=== PATIENT | female | born 1975 | race Caucasian/White ===

== ENCOUNTER 2022-04-14 10:47 | Day surgery (SDC) | payer MEDICARE, OTHER, SELFPAY ==
[2022-04-11 11:40] VITALS: BMI 21.7
[2022-04-14 11:14] LABS: UPreg QC Valid YES; Urine Pregnancy NEGATIVE (NEGATIVE)
[2022-04-14 11:30] VITALS: BP 142/98; PULSE 78; RESP 16; TEMP 36.7; O2SAT 97
[2022-04-14 11:31] LABS: Amphetamine Screen Urine POSITIVE (Not Detect); Barbiturates, Urine Not Detected (Not Detect); Benzodiazepines Screen Urine POSITIVE (Not Detect); Cannabinoid Screen Urine Not Detected (Not Detect); Cocaine Screen Urine Not Detected (Not Detect); Fentanyl, urine Not Detected (Not Detect); Opiate Screen Urine Not Detected (Not Detect); Phencyclidine Screen Urine Not Detected (Not Detect)
--- NOTE | 2022-04-14 12:15 | P.CONAN_ITS ---
HPI - Anesthesia Eval Consult details Narrative: 46 F for EGD [facility] Past Medical History Medical History (Updated 04/13/22 @ 07:54 by Amanda Gandhi, RN) Hx of substance abuse HTN (hypertension) GERD (gastroesophageal reflux disease) Dasilva esophagus Anxiety Depression Family History Family history of problems with anesthesia: No Surgical History Surgical History (Updated 04/13/22 @ 07:55 by Amanda Gandhi RN) Hx of esophagogastroduodenoscopy History of Problems with Anesthesia: No Social History Patient Tobacco Use Status: Current everyday Tobacco user Tobacco use type: Cigarette Cigarettes Per Day: 2 Meds Allergies Allergy/AdvReac Type Severity Reaction Status Date / Time penicillin G [Penicillin G] Allergy Intermediate HIVES Unverified 04/08/20 16:28 Active Medications: Current Medications Lactated Ringer's (Lr) 1,000 mls @ 100 mls/hr IVCONT .Q10H REPLACED BY [facility] Home Medications Medication Instructions Recorded Confirmed Last Taken Type clonazepam 0.5 mg tablet (Klonopin) 0.5 mg PO DAILY PRN Anxiety 04/13/22 04/13/22 Unknown History hydrochlorothiazide 25 mg tablet 25 mg PO DAILY 04/13/22 04/13/22 Unknown History metoprolol tartrate 04/13/22 04/13/22 Unknown History naltrexone microspheres 380 mg 380 mg IM Q4W 04/13/22 04/13/22 Unknown History intramuscular suspension,extended release (Vivitrol) pantoprazole 40 mg tablet,delayed 40 mg PO DAILY 04/13/22 04/13/22 Unknown History release cetirizine 10 mg tablet 1 tab PO DAILY 04/14/22 04/14/22 Unknown History dextroamphetamine-amphetamine ER PO 04/14/22 Unknown History 30 mg 24hr capsule,extend release (Adderall XR) Exam Exam Date and Time: April 14, 2022 1215 Height,Weight and Vital Signs: Height 5 ft 7 in Weight 63.049 kg Last Vital Signs Temp 98.1 F 04/14/22 11:30 Pulse 78 04/14/22 11:30 Resp 16 04/14/22 11:30 BP 142/98 H 04/14/22 11:30 Pulse Ox 97 04/14/22 11:30 O2 Del Method 04/14/22 11:30 Pertinent Lab Results Pertinent Lab Results: Laboratory Tests 04/14/22 04/14/22 10:59 10:59 Urine Test NEGATIVE Urine Opiates Screen Not Detected Urine Fentanyl Screen Not Detected Ur Barbiturates Screen Not Detected Ur Phencyclidine Scrn Not Detected Ur Amphetamines Screen POSITIVE H U Benzodiazepines Scrn POSITIVE H Urine Cocaine Screen Not Detected U Marijuana (THC) Screen Not Detected Airway Mallampati Class: III TM Dist: >3cm Neck ROM: Full Loose/Missing/Broken Teeth: Yes Assessment and Plan Assessment Anesthesia Assessment: Anesthesia Plan Discussed and Chart Reviewed Final Anesthetic Review Family History of Problems with Anesthesia: No History of Problems with Anesthesia: No NPO: Yes ASA Class: III Final Preanesthetic Review: Meds/Allgs Chart Reviewed, Consent Obtained/Reviewed and Anes Risks/Benef Reviewed Patient Risk: Intermediate Procedure Risk: Intermediate Anesthetic Plan Anesthetic Plan: MAC: and Agree w/ Assess. and Plan Disposition: Standard PACU
--- NOTE | 2022-04-14 12:20 | MHC.SHP ---
Pre-Procedural Eval Section A Date of Service: 04/14/22 The patient is an INPATIENT: No Changes since office visit: No Cold of Flu in the past 2 weeks, No New Medical Problems, No Changes in Medication and No Patient answered all questions The History & Physical has been completed within 30 days and I have reviewed it.: Yes Section B Chief Complaint: esophageal obstruction Allergies: Allergies Allergy/AdvReac Type Severity Reaction Status Date / Time penicillin G [Penicillin G] Allergy Intermediate HIVES Unverified 04/08/20 16:28 Plan I have reviewed the history and physical and performed a pertinent physical examination on my patient. No changes have occurred unless specified.
--- NOTE | 2022-04-14 13:09 | PM.OP ---
Brief Operative Note Date of Service: 04/14/22 Pre-op diagnosis: barrets,dysphagia, esophageal stricture Post-op diagnosis: same Procedure: egd Surgeon: Tarun Doyle Anesthesia: MAC Was an Correctional Therapy Director used for this Procedure?: No Estimated blood loss (mL): 5 Pathology: other Condition: stable Disposition: PACU
[2022-04-14 13:15] VITALS: BP 148/101; PULSE 75; RESP 16; TEMP 36.7; O2SAT 98
[2022-04-14 13:20] VITALS: BP 145/99; PULSE 78; RESP 17; O2SAT 100
[2022-04-14 13:25] VITALS: BP 154/108; PULSE 78; RESP 18; O2SAT 99
[2022-04-14 13:30] VITALS: BP 139/92; PULSE 78; RESP 18; O2SAT 99
[2022-04-14 13:45] VITALS: BP 143/95; PULSE 76; RESP 16; TEMP 36.7; O2SAT 99
--- NOTE | 2022-04-15 04:36 | OP_ITS ---
SURGEON: Tarun Doyle MD INDICATIONS: Dysphagia, history of esophageal stricture, and Dasilva esophagus. PREOPERATIVE DIAGNOSIS: POSTOPERATIVE DIAGNOSIS: PROCEDURE PERFORMED: Upper endoscopy with biopsy and balloon dilation. ESTIMATED BLOOD LOSS: COMPLICATIONS: ANESTHESIA: General. ASSISTANTS: SPECIMENS: DESCRIPTION OF PROCEDURE: Date: 04/14/22 History and physical performed. The risks and benefits of the procedure were explained to the patient. Informed consent was obtained. The patient was placed in the left lateral decubitus position. The Olympus video gastroscope was introduced into the esophagus, stomach, and duodenum. Examination was performed. The scope was removed. She tolerated the procedure well and was returned to the recovery area in stable condition. FINDINGS: There was nodularity and edema along the visualized larynx. No definite mass was seen. Esophagus: There was Dasilva esophagus extending from the EG junction up to about 28 cm. Biopsies were obtained in all 4 quadrants every 2 cm. There were no raised lesions or ulcerated areas. No definite stricture was identified. Balloon dilation of the EG junction to 20 mm was performed with a through the scope balloon for 60 seconds because of the patient's complaints. Stomach: The stomach showed no evidence of masses, ulcers, or polyps. Duodenum: The bulb and second portion were normal. IMPRESSION: 1. Dasilva esophagus. 2. Dysphagia. 3. Nodularity of larynx RECOMMENDATION: Follow up the biopsy results. ENT referral for laryngoscopy. MD ZACHARY Fuentes/LISS / [id number] MTDD
== END 2022-04-14 14:00 | disposition home or self-care (01) ==
PROVIDERS: Nurse Practitioner; PCP Nurse Practitioner Family; Visit Provider Internal Medicine Gastroenterology
PROC: (CPT 43249; principal; 2022-04-14 11:40)
DX: R13.10 Dysphagia, unspecified (principal); K22.70 Barrett's esophagus without dysplasia; J38.7 Other diseases of larynx; K21.9 Gastro-esophageal reflux disease without esophagitis; I10 Essential (primary) hypertension; F32.A Depression, unspecified; Z79.899 Other long term (current) drug therapy; Z88.0 Allergy status to penicillin; F17.210 Nicotine dependence, cigarettes, uncomplicated
CPT/HCPCS: 43249; 43239; 80307; 81025; 88305; C1726; J0330; J1100; J2250; J2405; J3010

== ENCOUNTER 2025-02-06 08:51 | Day surgery (SDC) | payer MEDICARE, SELFPAY ==
[2025-02-04 15:46] VITALS: BMI 23.2
--- NOTE | 2025-02-05 10:00 | HO.ANESPROP2 ---
Documented by User: Krystle Ray NP 02/05/25 10:01 HPI - Anesthesia Eval Consult details Narrative: 49yo F for Upper Endoscopy and Colonoscopy Hx ETOH abuse on vivitrol injections monthly [facility] Past Medical History Medical History (Updated 02/06/25 @ 09:17 by Amanda Gandhi, RN) ADHD Alcohol abuse, in remission History of esophageal stricture Hx of substance abuse HTN (hypertension) GERD (gastroesophageal reflux disease) Dasilva esophagus Anxiety Depression Family History Family history of problems with anesthesia: No Surgical History Surgical History (Updated 02/04/25 @ 15:43 by Sofia Wiggins, CASSIUS) History of surgical removal of skin lesion (07/2024) History of esophagogastroduodenoscopy (EGD) (03/2022) History of ear, nose, and throat (ENT) surgery Hx of esophagogastroduodenoscopy History of Problems with Anesthesia: No Social History Social History Patient Tobacco Use Status: Never used Tobacco Tobacco use type: Cigarette Cigarettes Per Day: 2 Use of substances other than those prescribed or required for medical reasons: Yes Substance Use Type Other:: last smoked few days ago Substance Use Frequency: Occasionally Are you DNR?: No Advance Directives: No Advance Directives Information Provided: Yes Meds Allergies Allergy/AdvReac Type Severity Reaction Status Date / Time penicillin G (Penicillin G) Allergy Intermediate HIVES Verified 02/06/25 09:17 Home Medications ?Medication ?Instructions ?Recorded ?Confirmed ?Last Taken ?Type clonazepam 0.5 mg tablet (Klonopin) 0.5 mg PO DAILY PRN Anxiety 04/13/22 02/04/25 Unknown History pantoprazole 40 mg tablet,delayed 40 mg PO DAILY 04/13/22 02/04/25 Unknown History release lisinopril 20 mg tablet 20 mg PO DAILY 07/11/23 02/04/25 Unknown History dextroamphetamine-amphetamine ER 1 cap PO BID 02/06/25 02/06/25 Unknown History 30 mg 24hr capsule,extend release Exam Height,Weight and Vital Signs: Height 5 ft 7 in Weight 67.132 kg Assessment and Plan Assessment Anesthesia Assessment: Chart Reviewed Final Anesthetic Review Family History of Problems with Anesthesia: No History of Problems with Anesthesia: No Documented by User: Ann Marie Marinelli MD 02/06/25 09:29 [facility] Past Medical History Medical History (Updated 02/06/25 @ 09:17 by Amanda Gandhi, RN) ADHD Alcohol abuse, in remission History of esophageal stricture Hx of substance abuse HTN (hypertension) GERD (gastroesophageal reflux disease) Dasilva esophagus Anxiety Depression Surgical History Surgical History (Updated 02/04/25 @ 15:43 by Sofia Wiggins, CASSIUS) History of surgical removal of skin lesion (07/2024) History of esophagogastroduodenoscopy (EGD) (03/2022) History of ear, nose, and throat (ENT) surgery Hx of esophagogastroduodenoscopy Social History Social History Patient Tobacco Use Status: Never used Tobacco Tobacco use type: Cigarette Cigarettes Per Day: 2 Use of substances other than those prescribed or required for medical reasons: Yes Substance Use Type Other:: last smoked few days ago Substance Use Frequency: Occasionally Are you DNR?: No Advance Directives: No Advance Directives Information Provided: Yes Meds Allergies Allergy/AdvReac Type Severity Reaction Status Date / Time penicillin G (Penicillin G) Allergy Intermediate HIVES Verified 02/06/25 09:17 Home Medications ?Medication ?Instructions ?Recorded ?Confirmed ?Last Taken ?Type clonazepam 0.5 mg tablet (Klonopin) 0.5 mg PO DAILY PRN Anxiety 04/13/22 02/04/25 Unknown History pantoprazole 40 mg tablet,delayed 40 mg PO DAILY 04/13/22 02/04/25 Unknown History release lisinopril 20 mg tablet 20 mg PO DAILY 07/11/23 02/04/25 Unknown History dextroamphetamine-amphetamine ER 1 cap PO BID 02/06/25 02/06/25 Unknown History 30 mg 24hr capsule,extend release Exam Airway Mallampati Class: II TM Dist: >3cm Neck ROM: Full Assessment and Plan Assessment Anesthesia Assessment: Anesthesia Plan Discussed Final Anesthetic Review NPO: Yes ASA Class: III Final Preanesthetic Review: No Changes in Pt Med Stat, Meds/Allgs Chart Reviewed, Consent Obtained/Reviewed and Anes Risks/Benef Reviewed Patient Risk: Low Procedure Risk: Low Anesthetic Plan Anesthetic Plan: TIVA Disposition: Standard PACU
[2025-02-06 09:10] VITALS: BMI 22.6
[2025-02-06 09:12] LABS: UPreg QC Valid YES
[2025-02-06 09:17] VITALS: BP 127/83; PULSE 69; RESP 15; TEMP 36.4; O2SAT 99
[2025-02-06] MEDS: Lactated Ringers 1,000 ML 100 ML IVCONT (09:26)
--- NOTE | 2025-02-06 09:38 | MHC.SHP ---
Pre-Procedural Eval Section A - 24 Hr Update-Section A only Date of Service: 02/06/25 Section B - Complete if H&P > 30 days Chief Complaint: Dasilva's esophagus without dysplasia Details of Present Illness: see H&P no changes Relevant Family History (Specify if Yes): No Relevant Social History: None Present Medications: see Short Stay Collaborative assessment Medical History: No relevant PMH History of Previous Operations: No relevant previous surgery Allergies: Allergies Allergy/AdvReac Type Severity Reaction Status Date / Time penicillin G (Penicillin G) Allergy Intermediate HIVES Verified 02/06/25 09:17 Review of Systems Sugical H&P ROS: Negative: Constitution, Cardiovascular, Respiratory, Neurological, Psychiatric, Hem-Onc, Allergic/Immunologic, Gastrointestinal, Genitourinary, Musculoskeletal, Integumentary, Endocrine and Eyes/Ears/Nose/Throat Exam Surgical H&P Exam: Normal: HEENT, Normal: Heart, Normal: Lungs, Normal: Extremities, Normal: Abdomen, Normal: Skin and Normal: Neurological Plan Diagnosis/Plan: Unchanged I have reviewed the history and physical and performed a pertinent physical examination on my patient. No changes have occurred unless specified. Time Spent With Patient Time: Total time managing care of this patient today ____ minutes.
[2025-02-06 10:52] VITALS: BP 111/87; PULSE 72; RESP 16; TEMP 36.6; O2SAT 97
[2025-02-06 11:00] VITALS: BP 136/87; PULSE 66; RESP 16; O2SAT 97
[2025-02-06 11:10] VITALS: BP 131/83; PULSE 61; RESP 16; TEMP 36.1; O2SAT 99
--- NOTE | 2025-02-06 12:17 | OP_ITS ---
DATE OF SERVICE: 02/06/2025 SURGEON: Tarun Doyle MD INDICATIONS: 1. Dasilva esophagus. 2. Colon cancer screening. PREOPERATIVE DIAGNOSIS: POSTOPERATIVE DIAGNOSIS: PROCEDURE PERFORMED: Upper endoscopy with biopsy, colonoscopy to the terminal ileum with snare polypectomy. ESTIMATED BLOOD LOSS: COMPLICATIONS: ANESTHESIA: Monitored anesthesia care. ASSISTANTS: SPECIMENS: DESCRIPTION OF PROCEDURE: A history and physical were performed. The risks and benefits of the procedure were explained to the patient. Informed consent was obtained. The patient was placed in the left lateral decubitus position. The Olympus video gastroscope was introduced into the esophagus, stomach, and duodenum. Examination was performed. The scope was removed. She was repositioned for colonoscopy. A digital rectal exam was performed and was found to be normal. The Olympus pediatric video colonoscope was introduced into the rectum and advanced to the cecum. The cecum was identified by transillumination, palpation, and identification of ileocecal valve. Examination was performed. The scope was removed. She tolerated both procedures well and was taken to recovery in stable condition. FINDINGS: Upper endoscopy: 1. Esophagus: Dasilva's esophagus was present over the distal 1/3 of the esophagus with no raised lesions or ulcerated areas. Biopsies were obtained beginning at the EG junction and extending cranially every 2 cm in all 4 quadrants. There was a small hiatal hernia. 2. Stomach: Stomach showed no evidence of masses, ulcers, or polyps. 3. Duodenum: The bulb and 2nd portion were normal. Colonoscopy: The terminal ileum was not examined. The visualized colonic mucosa was normal. The quality of the prep was fair with some retained stool, which was washed and suctioned. This limited the sensitivity examination for detection of small polyps. One polyp was identified in the sigmoid at 30 cm. This measured approximately 10 to 12 mm and was pedunculated, it was removed with a hot snare and recovered via suction. There was mild sigmoid diverticulosis. Retroflexed examination showed small internal hemorrhoids. IMPRESSION: 1. Dasilva esophagus. 2. Colon polyp. RECOMMENDATION: Follow up the biopsy results. MD ZACHARY Fuentes/LISS / [id number]
== END 2025-02-06 11:30 | disposition home or self-care (01) ==
PROVIDERS: Nurse Practitioner; PCP Nurse Practitioner Family; Visit Provider Internal Medicine Gastroenterology
PROC: (CPT 45385; principal; 2025-02-06 09:40)
DX: Z12.11 Encounter for screening for malignant neoplasm of colon (principal); D12.5 Benign neoplasm of sigmoid colon; K57.30 Diverticulosis of large intestine without perforation or abscess without bleeding; K64.8 Other hemorrhoids; K22.70 Barrett's esophagus without dysplasia; R13.10 Dysphagia, unspecified; K21.9 Gastro-esophageal reflux disease without esophagitis; K44.9 Diaphragmatic hernia without obstruction or gangrene; I10 Essential (primary) hypertension; F32.A Depression, unspecified; F41.9 Anxiety disorder, unspecified; Z79.899 Other long term (current) drug therapy; Z88.0 Allergy status to penicillin; F10.11 Alcohol abuse, in remission; F19.11 Other psychoactive substance abuse, in remission
CPT/HCPCS: 45385; 43239; 81025; 88305; 88313; J2003; J2704